=== PATIENT | male | born 1995 | race Caucasian/White ===

== ENCOUNTER 2017-07-18 18:01 | Emergency (ER) | payer OTHER ==
--- NOTE | 2017-07-18 18:53 | PDOC ---
Rapid Medical Evaluation Medical Evaluation: 07/18/17 18:50 I have performed a brief in-person evaluation of this patient. The patient presents with a chief complaint of:vomiting, f/c, sore throat and body aches since yesterday Pertinent physical exam findings:Febrile I have ordered the following:flu and tylenol The patient will proceed to the ED for further evaluation.
[2017-07-18] MEDS ORDERED: ACETAMINOPHEN 325 MG TABLET (FP) PO ONE (18:54)
[2017-07-18 19:00] VITALS: BMI 25.8
[2017-07-18] MEDS ORDERED: SODIUM CHLORIDE 0.9% 500 ML INFUS.BAG IV ONE ×2 (19:53→21:48)
[2017-07-18] MEDS ORDERED: ACETAMINOPHEN 1000 MG/100 ML VIAL (NON FORMULARY) IVPB ONE (19:53)
--- NOTE | 2017-07-18 19:53 | PDOC ---
History of Present Illness - History of Present Illness Initial Comments: 07/18/17 20:09 The patient is a 21 year old male, with no significant past medical history, who presents to the emergency department with flu-like symptoms since yesterday. Patient states that since last night around 12 am he experienced body aches, sore throat, and vomiting. Patient states he has been unable to tolerate any liquids or solids since yesterday. 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 He denies any recent headache or dizziness. He denies any recent diarrhea or constipation. He denies any recent chest pain or shortness of breath. He denies any recent dysuria, frequency, urgency or hematuria. Allergies: NKA Past surgical history: None reported. Social History: Nonsmoker. Denies EtOH use and recreational drug use. Primary Care Physician: Ahsan Fuller <Nicolasa Ruby - Last Filed: 07/18/17 20:11> <Gudelia Tate - Last Filed: 07/18/17 22:38> - General Chief Complaint: Respiratory Stated Complaint: COLD SYMPTOMS Time Seen by Provider: 07/18/17 19:44 Past History <Nicolasa Ruby - Last Filed: 07/18/17 20:11> - Past Medical History COPD: No - Suicide/Smoking/Psychosocial Hx Smoking History: Never smoked Have you smoked in the past 12 months: No Information on smoking cessation initiated: No Hx Alcohol Use: No Drug/Substance Use Hx: No <Gudelia Tate - Last Filed: 07/18/17 22:38> - Past Medical History Allergies/Adverse Reactions: Allergies Allergy/AdvReac Type Severity Reaction Status Date / Time No Known Allergies Allergy Verified 07/18/17 19:00 Home Medications: Ambulatory Orders Oseltamivir Phosphate [Tamiflu -] 75 mg PO BID #10 capsule 07/18/17 Review of Systems - Review of Systems Comments:: 07/18/17 20:10 GENERAL/CONSTITUTIONAL: +body aches. No weakness. HEAD, EYES, EARS, NOSE AND THROAT: No change in vision. No ear pain or discharge. +sore throat. CARDIOVASCULAR: No chest pain or shortness of breath. RESPIRATORY: No cough, wheezing, or hemoptysis. GASTROINTESTINAL: +vomiting, no diarrhea or constipation. GENITOURINARY: No dysuria, frequency, or change in urination. MUSCULOSKELETAL: No joint or muscle swelling or pain. No neck or back pain. SKIN: No rash NEUROLOGIC: No headache, vertigo, loss of consciousness, or change in strength/ sensation. ENDOCRINE: No increased thirst. No abnormal weight change. HEMATOLOGIC/LYMPHATIC: No anemia, easy bleeding, or history of blood clots. ALLERGIC/IMMUNOLOGIC: No hives or skin allergy. <Nicolasa Ruby - Last Filed: 07/18/17 20:11> *Physical Exam - Vital Signs Last Vital Signs Temp Pulse Resp BP Pulse Ox 102.1 F H 123 H 18 124/71 100 07/18/17 18:45 07/18/17 18:45 07/18/17 18:45 07/18/17 18:45 07/18/17 18:45 - Physical Exam Comments: 07/18/17 20:11 GENERAL: +Febrile. Awake, alert, and fully oriented, in no acute distress HEAD: No signs of trauma EYES: PERRLA, EOMI, sclera anicteric, conjunctiva clear ENT: Auricles normal inspection, hearing grossly normal, nares patent, oropharynx clear without exudates. Moist mucosa NECK: Normal ROM, supple, no lymphadenopathy, JVD, or masses LUNGS: Breath sounds equal, clear to auscultation bilaterally. No wheezes, and no crackles HEART: +Tachycardic. Regular rate and rhythm, normal S1 and S2, no murmurs, rubs or gallops ABDOMEN: Soft, nontender, normoactive bowel sounds. No guarding, no rebound. No masses EXTREMITIES: Normal range of motion, no edema. No clubbing or cyanosis. No cords, erythema, or tenderness NEUROLOGICAL: Cranial nerves II through XII grossly intact. Normal speech, normal gait SKIN: Warm, Dry, normal turgor, no rashes or lesions noted. <Nicolasa Ruby - Last Filed: 07/18/17 20:11> - Vital Signs Last Vital Signs Temp Pulse Resp BP Pulse Ox 102.1 F H 123 H 18 124/71 100 07/18/17 18:45 18 18:45 07/18/17 18:45 07/18/17 18:45 07/18/17 18:45 <Gudelia Tate - Last Filed: 07/18/17 22:38> ED Treatment Course - ADDITIONAL ORDERS Additional order review: 07/18/17 18:55 Influenza Types A,B Antigen (EVAN) - Preliminary Nasopharyngeal Swab - Preliminary - Medications Given in the ED: ED Medications Discontinued Medications Generic Name Dose Route Start Last Admin Trade Name Freq PRN Reason Stop Dose Admin Acetaminophen 650 mg 07/18/17 18:54 07/18/17 19:00 Tylenol - PO 07/18/17 18:55 650 mg ONCE ONE Administration <Nicolasa Ruby - Last Filed: 07/18/17 20:11> - LABORATORY CBC & Chemistry Diagram: 07/18/17 20:34 07/18/17 20:34 - ADDITIONAL ORDERS Additional order review: 07/18/17 18:55 Influenza Types A,B Antigen (EVAN) - Preliminary Nasopharyngeal Swab - Preliminary - Medications Given in the ED: ED Medications Discontinued Medications Generic Name Dose Route Start Last Admin Trade Name Freq PRN Reason Stop Dose Admin Acetaminophen 650 mg 07/18/17 18:54 07/18/17 19:00 Tylenol - PO 07/18/17 18:55 650 mg ONCE ONE Administration <Gudelia Tate - Last Filed: 07/18/17 22:38> *DC/Admit/Observation/Transfer - Attestations Scribe Attestion: 07/18/17 20:11 Documentation prepared by Nicolasa Ruby, acting as medical office technologist for Gudelia Tate MD. <Nicolasa Ruby - Last Filed: 07/18/17 20:11> - Discharge Dispostion Admit: No <Gudelia Tate - Last Filed: 07/18/17 22:38> Diagnosis at time of Disposition: Influenza - Discharge Dispostion Disposition: HOME Condition at time of disposition: Improved - Prescriptions Prescriptions: Oseltamivir Phosphate [Tamiflu -] 75 mg PO BID #10 capsule - Referrals Referrals: Ahsan Fuller MD [Primary Care Provider] - - Patient Instructions Printed Discharge Instructions: Influenza - Post Discharge Activity Forms/Work/School Notes: Back to Work
[2017-07-18] MEDS ORDERED: ACETAMINOPHEN INJECTION 100 ML IVPB ONE (20:38)
[2017-07-18 20:40] LABS: BASO % 0.3 % (0-2.0); EOS % 0.1 % (0-4.5); HEMATOCRIT 43.3 % (35.4-49); HEMOGLOBIN 14.5 GM/dL (11.7-16.9); MCH 26.9 pg (25.7-33.7); MCHC 33.6 g/dl (32.0-35.9); MEAN CELL VOLUME 80.1 fl (80-96); MEAN PLT VOLUME 8.5 fl (7.5-11.1); MONO % 12.4 % (3.8-10.2); NEUT % 83.2 % (42.8-82.8); PLATELET COUNT 156 K/MM3 (134-434); RDW 14.7 % (11.9-15.9); WHITE BLOOD COUNT 5.2 K/mm3 (4.0-10.0)
[2017-07-18 21:22] LABS: ANION GAP 8 (8-16); BILIRUBIN,TOTAL 0.5 mg/dL (0.2-1.0); BLOOD UREA NITROGEN 14 mg/dL (7-18); CALCIUM 7.9 mg/dL (8.5-10.1); CHLORIDE 108 mmol/L (98-107); CO2 24 mmol/L (21-32); CREATININE 0.8 mg/dL (0.7-1.3); GLUCOSE,RANDOM 89 mg/dL (74-106); SGOT/AST 14 U/L (15-37); SGPT/ALT 24 U/L (12-78); SODIUM 140 mmol/L (136-145); TOT PROT 6.9 g/dl (6.4-8.2)
[2017-07-18 21:23] LABS: ALK PHOS 117 U/L (45-117)
[2017-07-18] MEDS ORDERED: OSELTAMIVIR PHOSPHATE 75 MG CAPSULE PO ONE (21:41)
[2017-07-18] MEDS ORDERED: OSELTAMIVIR PHOSPHATE 75 MG CAPSULE ONE (21:49)
[2017-07-18 22:48] VITALS: BP 121/62; PULSE 113; TEMP 99.2
== END 2017-07-18 22:48 | disposition home or self-care (01) ==
LOC: JER 18:01
PROC: 3E033NZ Introduction of Analgesics, Hypnotics, Sedatives into Peripheral Vein, Percutaneous Approach (ICD-10-PCS; principal; 2017-07-18)
DX: J09.X2 Influenza due to identified novel influenza A virus with other respiratory manifestations (principal)
CPT/HCPCS: 36415; 80053; 85025; 87804; 99283-25